=== PATIENT | male | born 1965 | race Two or more races ===

== ENCOUNTER 2019-09-08 15:14 | Inpatient (IN) | payer OTHER ==
[~2019-09-08] VITALS: Ht 182.9 cm; Wt 104.3 kg
[2019-09-13] MEDS ORDERED: ATORVASTATIN CA10 MG PO (13:17)
[2019-09-13] MEDS ORDERED: LIPOFEN150 MG PO (13:18)
[2019-09-13] MEDS ORDERED: AVALIDE 300-121 EACH PO (13:18)
[2019-09-13] MEDS ORDERED: GLIPIZIDE XL10 MG PO (13:18)
[2019-09-13] MEDS ORDERED: TRANDATE300 MG PO (13:19)
[2019-09-13] MEDS ORDERED: TENAZEPAM PO (13:19)
[2019-09-13] MEDS ORDERED: HUMULI (13:20)
[2019-09-18] MEDS ORDERED: HUMULIN 70100 UNIT/2 (09:10)
[2019-09-18] MEDS ORDERED: FENOFIBRATE160 MG PO (09:11)
[2019-09-18] MEDS ORDERED: RESTORIL30 M1 PO (09:13)
[2019-09-21] MEDS ORDERED: HYOSCYAMINE0.125 M1 SL (12:59)
[2019-09-21] MEDS ORDERED: OXYC1TAB9 PO (13:00)
[2019-09-21] MEDS ORDERED: INTESTINEX680 M1 PO (13:00)
== END 2019-09-21 14:02 | disposition home or self-care (01) | DRG 330 ==
LOC: O/R 09-18 05:20 → SURH 09-18 05:20 → SURG 09-18 06:45 → SURH 09-18 13:35
PROVIDERS: ADMIT Surgery
PROC: 4A033R1 Measurement of Arterial Saturation, Peripheral, Percutaneous Approach (ICD-10-PCS; 2019-09-18)
PROC: 4A12X4Z Monitoring of Cardiac Electrical Activity, External Approach (ICD-10-PCS; 2019-09-18)
PROC: 0DTG4ZZ Resection of Left Large Intestine, Percutaneous Endoscopic Approach (ICD-10-PCS; principal; 2019-09-18 06:45)
DX: C18.6 Malignant neoplasm of descending colon (principal); N17.8 Other acute kidney failure; I11.9 Hypertensive heart disease without heart failure; E11.22 Type 2 diabetes mellitus with diabetic chronic kidney disease; I12.9 Hypertensive chronic kidney disease with stage 1 through stage 4 chronic kidney disease, or unspecified chronic kidney disease; N18.3 Chronic kidney disease, stage 3 (moderate); G47.33 Obstructive sleep apnea (adult) (pediatric); E11.65 Type 2 diabetes mellitus with hyperglycemia; Z79.4 Long term (current) use of insulin

== ENCOUNTER 2019-10-25 19:59 | Inpatient (IN) | payer OTHER ==
[~2019-10-25] VITALS: Ht 182.9 cm; Wt 96.2 kg
[~2019-10-25 19:59] MED LIST: ATORVASTATIN CA10 MG PO; AVALIDE 300-121 EACH PO; FENOFIBRATE160 MG PO; GLIPIZIDE XL10 MG PO; HUMULI; HUMULIN 70100 UNIT/2; HYOSCYAMINE0.125 M1 SL; INTESTINEX680 M1 PO; LIPOFEN150 MG PO; OXYC1TAB9 PO; RESTORIL30 M1 PO; TENAZEPAM PO; TRANDATE300 MG PO
[2019-10-31] MEDS ORDERED: FAMOTIDINE20 MG PO (08:21)
[2019-10-31] MEDS ORDERED: PANTOPRAZOLE SO40 MG PO (08:21)
[2019-10-31] MEDS ORDERED: INTEGRA F CAPS1 EACH PO (08:21)
[2019-10-31] MEDS ORDERED: Neurin-Sl Tablet Sl SL (08:21)
[2019-10-31] MEDS ORDERED: FOLIC ACID1 MG PO (08:22)
== END 2019-10-31 12:49 | disposition home or self-care (01) | DRG 811 ==
LOC: ER 19:59 → ICU-2 21:14 → ICU 10-26 21:39 → SURH 10-30 14:02
PROVIDERS: ADMIT Surgery
PROC: 30233N1 Transfusion of Nonautologous Red Blood Cells into Peripheral Vein, Percutaneous Approach (ICD-10-PCS; principal; 2019-10-26)
PROC: 05HB33Z Insertion of Infusion Device into Right Basilic Vein, Percutaneous Approach (ICD-10-PCS; 2019-10-26)
PROC: 0W3P8ZZ Control Bleeding in Gastrointestinal Tract, Via Natural or Artificial Opening Endoscopic (ICD-10-PCS; 2019-10-27)
PROC: 3E0336Z Introduction of Nutritional Substance into Peripheral Vein, Percutaneous Approach (ICD-10-PCS; 2019-10-27)
DX: D50.0 Iron deficiency anemia secondary to blood loss (chronic) (principal); K25.4 Chronic or unspecified gastric ulcer with hemorrhage; I85.01 Esophageal varices with bleeding; E87.0 Hyperosmolality and hypernatremia; I13.10 Hypertensive heart and chronic kidney disease without heart failure, with stage 1 through stage 4 chronic kidney disease, or unspecified chronic kidney disease; N18.3 Chronic kidney disease, stage 3 (moderate); D69.49 Other primary thrombocytopenia; I44.0 Atrioventricular block, first degree; G47.33 Obstructive sleep apnea (adult) (pediatric); E78.1 Pure hyperglyceridemia; E11.65 Type 2 diabetes mellitus with hyperglycemia; E86.0 Dehydration